=== PATIENT | female | born 1990 | race Asian ===

== ENCOUNTER 2016-09-07 05:52 | Day surgery (SDC) | payer OTHER ==
[~2016-09-07] VITALS: Ht 160 cm; Wt 47.7 kg
[~2016-09-07 05:52] MED LIST: MONT10TA21 PO; VITAD5000 PO
[2016-09-07] MEDS ORDERED: SODIUM CHLORIDE 0.9% 1,000 ML IV ONE ×2 (06:00→06:15)
[2016-09-07] MEDS ORDERED: MIDAZOLAM HCL 2 MG/2 ML VIAL ONE (07:57)
[2016-09-07] MEDS ORDERED: FentaNYL CITRATE-PF 100 MCG/2 ML VIAL ONE (07:58)
[2016-09-07] MEDS ORDERED: MethylPREDNISolone SOD SUCC 125 MG/2 ML VIAL IVP ONE (08:30)
[2016-09-07] MEDS ORDERED: MethylPREDNISolone SOD SUCC 125 MG/2 ML VIAL ONE (09:18)
[2016-09-07] MEDS ORDERED: BENZOCAINE 20% 50 MCG/SPRAY 57 GM TP ONE (16:56)
[2016-09-07] MEDS ORDERED: LIDOCAINE HCL 2% 30 ML JELLY TP ONE (16:56)
[2016-09-07] MEDS ORDERED: LIDOCAINE HCL 4% 50 ML SOLUTION TP ONE (16:56)
[2016-09-07] MEDS ORDERED: OXYGEN THERAPY IH SCH (20:00)
== END 2016-09-07 10:25 | disposition home or self-care (01) ==
LOC: SURGERY 05:52
PROVIDERS: ATTEND Internal Medicine Critical Care Medicine
DX: J38.4 Edema of larynx (principal); B37.0 Candidal stomatitis; J45.909 Unspecified asthma, uncomplicated
CPT/HCPCS: 31623; 31624; 71010; 84703; 87015 ×2; 87070; 87101; 87205; 87220; J2250; J2930; J3010; J7030; 88108; 88312